=== PATIENT | male | born 1985 | race Caucasian/White ===

== ENCOUNTER 2021-12-14 20:25 | Emergency (ER) | payer OTHER ==
[~2021-12-14] VITALS: Ht 188 cm; Wt 88.5 kg
[2021-12-14] MEDS ORDERED: BUPR150T15 PO (20:41)
[2021-12-14] MEDS ORDERED: FINA1TAB3 PO (20:41)
[2021-12-14] MEDS ORDERED: HYDROcodone/APAP 5/325MG 1 TAB TABLET PO ONE (20:45)
[2021-12-14] MEDS ORDERED: IBUPROFEN 600 MG TABLET. PO ONE (20:45)
[2021-12-14] MEDS ORDERED: IV NORMAL SALINE 1,000ML 1,000 ML IV ONE (20:45)
[2021-12-14] MEDS ORDERED: predniSONE 20 MG TABLET PO ONE (20:45)
[2021-12-14] MEDS ORDERED: diphenhydrAMINE HCL 25 MG CAPSULE PO ONE (20:45)
[2021-12-14 21:27] LABS: BASO % 0 % (0-3); EOS % 0 % (0-3); HEMATOCRIT 47.5 % (39.0-53.0); HEMOGLOBIN 16.5 g/dL (13.0-17.5); LYMPH # 1.6 x10^3/uL (1.0-4.8); LYMPH % 12 % (24-48); MEAN CORPUSCULAR HEMOGLOBIN 30 pg (25-35); MEAN CORPUSCULAR HGB CONC 35 g/dL (31-37); MEAN CORPUSCULAR VOLUME 87 fL (79-100); MONO # 0.7 x10^3/uL (0.0-1.1); MONO % 5 % (0-9); NEUT # 10.8 x10^3uL (1.8-7.7); NEUT % 82 % (31-73); PLATELET COUNT 174 x10^3/uL (140-400); RED BLOOD COUNT 5.47 x10^6/uL (4.30-5.70); RED CELL DISTRIBUTION WIDTH 12.8 % (11.5-14.5); WHITE BLOOD COUNT 13.2 x10^3/uL (4.0-11.0)
[2021-12-14 21:35] LABS: CALCIUM 8.8 mg/dL (8.5-10.1); CREATININE 1.2 mg/dL (0.7-1.3); GFR 67.8; POTASSIUM 3.8 mmol/L (3.5-5.1)
[2021-12-14 21:43] LABS: ALBUMIN 3.7 g/dL (3.4-5.0); TOTAL BILIRUBIN 1.1 mg/dL (0.2-1.0); TOTAL PROTEIN 7.4 g/dL (6.4-8.2)
--- NOTE | 2021-12-14 22:05 | PHYS DOC ---
Past History Additional Past Medical Histor: hair loss (JAMES EUBANKS APRN) Past Surgical History: Other Additional Past Surgical Histo: Adnoids (JAMES EUBANKS APRN) General Adult EDM: Chief Complaint: SKIN RASH/ABSCESS HPI: HPI: Patient is a 36-year-old male presents with rash and swelling to bilateral hands. Rash also on bilateral knees and bilateral feet. Patient states that the rash started 2 days ago. Patient was placed on Bactrim for cellulitis. [place] chopra states he broke out in hives after taking the Bactrim and it was discontinued. Patient states he was placed on a second antibiotic to treat cellulitis. The hives on the patient's face resolved. Patient is now complaining that the swelling and rash is moving up his forearm. Patient reports itching to the area as well. Patient was diagnosed with flu yesterday. Patient is currently on a training trip from [place]. Patient's been riding on a bus for the last 10 hours. Denies chest pain, shortness of breath. Denies recent illness. No known new exposure to detergents or lotions. (JAMES EUBANKS APRN) Review of Systems: Review of Systems: ROS At least 10 ROS systems have been reviewed and are negative except as documented in the HPI. General: Negative except as outlined in HPI above. Skin: Negative except as outlined in HPI above. HEENT: Negative except as outlined in HPI above. Neck: Negative except as outlined in HPI above. Respiratory: Negative except as outlined in HPI above.. Cardiovascular: Negative except as outlined in HPI above. Abdomen: Negative except as outlined in HPI above. : Negative except as outlined in HPI above. Back/MSK: Negative except as outlined in HPI above. Neuro: Negative except as outlined in HPI above. Psych: Negative except as outlined in HPI above. (JAMES EUBANKS APRN) Current Medications: Current Meds: Current Medications Medications (Trade) Dose Ordered Sig/Suellen Start Time Stop Time Status Last Admin Dose Admin Acetaminophen/ Hydrocodone Bitart (Lortab 5/325) 1 tab 1X ONCE 12/14/21 20:45 12/14/21 20:53 DC 12/14/21 20:45 1 TAB Diphenhydramine HCl (Benadryl) 25 mg 1X ONCE 12/14/21 20:45 12/14/21 20:53 DC Ibuprofen (Motrin) 600 mg 1X ONCE 12/14/21 20:45 12/14/21 20:53 DC 12/14/21 20:45 600 MG Prednisone (Prednisone) 60 mg 1X ONCE 12/14/21 20:45 12/14/21 20:53 DC 12/14/21 20:45 60 MG Sodium Chloride 1,000 ml @ 1,000 mls/hr 1X ONCE 12/14/21 20:45 12/14/21 21:44 DC 12/14/21 20:45 1,000 MLS/HR (JAMES EUBANKS APRN) Allergies: Allergies: Allergies Coded Allergies Type Severity Reaction Last Updated Verified sulfamethoxazole Allergy Intermediate hives 12/14/21 Yes trimethoprim Allergy Intermediate hives 12/14/21 Yes (JAMES EUBANKS APRN) Physical Exam: PE: Constitutional: Well developed, well nourished, no acute distress, non-toxic appearance. HENT: bilateral external ears normal, oropharynx moist, no oral exudates, nose normal. Eyes: conjunctiva normal, no discharge. Neck: Normal range of motion, no tenderness, supple, no stridor. Cardiovascular:Heart rate regular rhythm, no murmur Lungs & Thorax: Bilateral breath sounds clear to auscultation Abdomen: Bowel sounds normal, soft, no tenderness, no masses, no pulsatile masses. Skin: Swelling to bilateral hands, knees, feet. Redness, pruritic rash Back: No tenderness, no CVA tenderness. Extremities: No tenderness, ROM intact, swelling and rash on forearm Neurologic: Alert and oriented X 3, normal motor function, normal sensory function, no focal deficits noted. [] Psychologic: Affect normal, judgement normal, mood normal. [] (JAMES EUBANKS OCCUPATIONAL THERAPIST ASSISTANT) Current Patient Data: Labs: Laboratory Tests Test 12/14/21 20:55 White Blood Count 13.2 x10^3/uL (4.0-11.0) H Red Blood Count 5.47 x10^6/uL (4.30-5.70) Hemoglobin 16.5 g/dL (13.0-17.5) Hematocrit 47.5 % (39.0-53.0) Mean Corpuscular Volume 87 fL (79-100) Mean Corpuscular Hemoglobin 30 pg (25-35) Mean Corpuscular Hemoglobin Concent 35 g/dL (31-37) Red Cell Distribution Width 12.8 % (11.5-14.5) Platelet Count 174 x10^3/uL (140-400) Neutrophils (%) (Auto) 82 % (31-73) H Lymphocytes (%) (Auto) 12 % (24-48) L Monocytes (%) (Auto) 5 % (0-9) Eosinophils (%) (Auto) 0 % (0-3) Basophils (%) (Auto) 0 % (0-3) Neutrophils # (Auto) 10.8 x10^3uL (1.8-7.7) H Lymphocytes # (Auto) 1.6 x10^3/uL (1.0-4.8) Monocytes # (Auto) 0.7 x10^3/uL (0.0-1.1) Eosinophils # (Auto) 0.0 x10^3/uL (0.0-0.7) Basophils # (Auto) 0.0 x10^3/uL (0.0-0.2) Sodium Level 135 mmol/L (136-145) L Potassium Level 3.8 mmol/L (3.5-5.1) Chloride Level 100 mmol/L (98-107) Carbon Dioxide Level 28 mmol/L (21-32) Anion Gap 7 (6-14) Blood Urea Nitrogen 11 mg/dL (8-26) Creatinine 1.2 mg/dL (0.7-1.3) Estimated GFR (Cockcroft-Gault) 67.8 BUN/Creatinine Ratio 9 (6-20) Glucose Level 100 mg/dL (70-99) H Calcium Level 8.8 mg/dL (8.5-10.1) Total Bilirubin 1.1 mg/dL (0.2-1.0) H Aspartate Amino Transferase (AST) 15 U/L (15-37) Alanine Aminotransferase (ALT) 22 U/L (16-63) Alkaline Phosphatase 85 U/L (46-116) Total Protein 7.4 g/dL (6.4-8.2) Albumin 3.7 g/dL (3.4-5.0) Albumin/Globulin Ratio 1.0 (1.0-1.7) Vital Signs: Vital Signs Date Time Temp Pulse Resp B/P (MAP) Pulse Ox O2 Delivery O2 Flow Rate FiO2 12/14/21 20:45 20 99 Room Air 12/14/21 20:34 99.5 118 125/86 (99) (JAMES EUBANKS APRN) EKG: EKG: [] (JAMES EUBANKS APRN) Radiology/Procedures: Radiology/Procedures: [] (JAMES EUBANKS APRN) Heart Score: C/O Chest Pain: No Risk Factors: Risk Factors: DM, Current or recent (<one month) smoker, HTN, HLP, family history of CAD, obesity. Risk Scores: Score 0 - 3: 2.5% MACE over next 6 weeks - Discharge Home Score 4 - 6: 20.3% MACE over next 6 weeks - Admit for Clinical Observation Score 7 - 10: 72.7% MACE over next 6 weeks - Early Invasive Strategies (JAMES EUBANKS APRN) Course & Med Decision Making: Course & Med Decision Making Pertinent Labs and Imaging studies reviewed. (See chart for details) [] Nontoxic appearing, 36-year-old male presents with rash and swelling to bilateral hands, knees, feet. Patient reports itching to the area. Denies pain. No shortness of breath or chest pain associated with rash. Patient is currently on an antibiotic to treat cellulitis. Patient has no known new exposure. Patient was diagnosed with flu yesterday. Patient is currently on a training trip from [place]. Upon physical exam I did notice patient's hands have a purpleish, bluish tent to the tips. Cap refills less than 2 seconds. Hands are warm to the touch. CBC, CMP, lactic, blood cultures. Patient given ibuprofen, prednisone, hydrocodone, Benadryl. Patient also given IV, NS, bolus. Patient's heart rate is slightly elevated in the 1 teens. Transfer patient care to Dr. Crowley at [phone] (JAMES EUBANKS APRN) Course & Med Decision Making The patient's heart rate is improved within normal limits. His labs are unremarkable except for slight elevated white count. Not exactly sure what is causing the patient's skin findings. The rest of his symptoms are likely related to his influenza diagnosis. He is stable for discharge at this time. (TERESE CROWLEY DO) Dragon Disclaimer: Dragon Disclaimer: This electronic medical record was generated, in whole or in part, using a voice recognition dictation system. (JAMES EUBANKS APRN) Departure Departure: Impression: Primary Impression: Influenza B Additional Impression: Rash and nonspecific skin eruption Disposition: 01 HOME / SELF CARE / HOMELESS Condition: STABLE Referrals: PCP,NURIA (PCP) Patient Instructions: Influenza, Adult, [id number] JAMES EUBANKS APRN Dec 14, 2021 22:05 TERESE CROWLEY DO Dec 14, 2021 23:08
[2021-12-14] MEDS ORDERED: DEXAMETHASONE SOD PHOS 4 MG/ML VIAL. IVP ONE (23:15)
[2021-12-14] MEDS ORDERED: PRED-220 PO (23:16)
[2021-12-14 23:30] VITALS: BP 114/71
[2021-12-14] MEDS ORDERED: OSEL75CA PO (23:31)
== END 2021-12-14 23:55 | disposition home or self-care (01) ==
LOC: ER 20:25
DX: J10.1 Influenza due to other identified influenza virus with other respiratory manifestations (principal); R21 Rash and other nonspecific skin eruption; Z88.2 Allergy status to sulfonamides; Z88.1 Allergy status to other antibiotic agents
CPT/HCPCS: 36415; 80053; 83605; 85025; 87040; 96361; 96374; 99285; J1100; J7030; J7512; Q0163